=== PATIENT | female | born 1950 | race Caucasian/White ===

== ENCOUNTER 2018-09-19 07:54 | Day surgery (SDC) | payer MEDICARE, OTHER ==
[~2018-09-19 07:54] MED LIST: Lactated Ringers 1,000 ML IV SCH; Lidocaine 1% 6 ML ONE; Lidocaine 1%/Sod Bicarbonate in NS 8.4% 1 ML Syringe IDERM PRN; Propofol 200 MG/20 ML SDV ONE; Sodium Chloride 0.9% 10 ML Syringe FLUSH PRN; fentaNYL 100 MCG/2 ML SDV ONE
--- NOTE | 2018-09-19 08:01 | PCM.PREANE ---
Preanesthetic Assessment - Anesthesia/Transfusion/Family Hx Anesthesia History: Prior Anesthesia Without Reaction Family History of Anesthesia Reaction: No Transfusion History: No Prior Transfusion(s) Intubation History: Unknown - Review of Systems General: No Symptoms Pulmonary: No Symptoms (Former smoker 1-2 packs per day times 15 years quit 25 years ago/AUSTYN with CPAP) Cardiovascular: No Symptoms Gastrointestinal: No Symptoms (GERD/appetite disorder), Difficulty Swallowing Neurological: No Symptoms (essential tremor) Other: Reports: Thyroid Problems (hypothyroid), Sinus Problem (post nasal drip) , Anxiety - Physical Assessment NPO Status Date: 09/18/18 NPO Status Time: 21:30 Pulse: 74 O2 Sat by Pulse Oximetry: 95 Respiratory Rate: 18 Blood Pressure: 131/70 Temperature: 36.1 C Height: 1.65 m Weight: 83 kg ASA Class: 2 Mental Status: Alert & Oriented x3 Airway Class: Mallampati = 2 Dentition: Reports: Dentures (top), Partial (bottom) Thyro-Mental Finger Breadths: 3 Mouth Opening Finger Breadths: 3 ROM/Head Extension: Full Lungs: Clear to Auscultation, Normal Respiratory Effort Cardiovascular: Regular Rate, Regular Rhythm, No Murmurs - Allergies Allergies/Adverse Reactions: Allergies Allergy/AdvReac Type Severity Reaction Status Date / Time No Known Allergies Allergy Verified 09/19/18 08:21 - Anesthesia Plan Pre-Op Medication Ordered: Beta Bernard Beta Bernard: Propranolol Med Last Dose Date: 09/19/18 Med Last Dose Time: 07:00 - Acknowledgements Anesthesia Type Planned: MAC Pt an Appropriate Candidate for the Planned Anesthesia: Yes Alternatives and Risks of Anesthesia Discussed w Pt/Guardian: Yes Pt/Guardian Understands and Agrees with Anesthesia Plan: Yes PreAnesthesia Questionnaire HEENT History: Reports: Impaired Vision, Other (See Below) Other HEENT History: wears glasses, has upper denture, lower partial Cardiovascular History: Reports: High Cholesterol Respiratory History: Reports: Sleep Apnea, Other (See Below) Other Respiratory History: snoring Gastrointestinal History: Reports: GERD, Other (See Below) Other Gastrointestinal History: appetite disorder, dysphagia Genitourinary History: Reports: None HAT PRESSER History: Reports: None Musculoskeletal History: Reports: Other (See Below) Other Musculoskeletal History: hip pain Neurological History: Reports: Other (See Below) Other Neuro History: essential tremor Psychiatric History: Reports: Anxiety Endocrine/Metabolic History: Reports: Hypothyroidism, Osteopenia Hematologic History: Reports: None Immunologic History: Reports: None Oncologic (Cancer) History: Reports: None Dermatologic History: Reports: Other (See Below) Other Dermatologic History: neck cyst excision - Past Surgical History Head Surgeries/Procedures: Reports: None HEENT Surgical History: Reports: None Cardiovascular Surgical History: Reports: None Respiratory Surgical History: Reports: None GI Surgical History: Reports: Colonoscopy Female Surgical History: Reports: Tubal Ligation Male Surgical History: Reports: None Endocrine Surgical History: Reports: None Neurological Surgical History: Reports: None Musculoskeletal Surgical History: Reports: Other (See Below) Other Musculoskeletal Surgeries/Procedures:: carpal tunnel release, foot surgery Oncologic Surgical History: Reports: None Dermatological Surgical History: Reports: None - SUBSTANCE USE Smoking Status *Q: Former Smoker Recreational Drug Use History: No - HOME MEDS Home Medications: Home Meds Calcium Carbonate [Calcium] 600 mg PO BID 09/18/18 [History] Chromium Picolinate 1,000 mcg PO BID 09/18/18 [History] Levothyroxine 125 mcg PO DAILY 09/18/18 [History] Multivitamin [Daily Multiple Vitamin] 1 tab PO DAILY 09/18/18 [History] Multivits,Ca,Minerals/Iron/FA [Women's Daily Formula Caplet] 1 tab PO DAILY [History] Phentermine HCl 15 mg PO DAILY 09/18/18 [History] Propranolol [Inderal LA] 60 mg PO DAILY 09/18/18 [History] atorvaSTATin [Lipitor] 10 mg PO DAILY 09/18/18 [History] metFORMIN [Glucophage] 500 mg PO BEDTIME 09/18/18 [History] - CURRENT (IN HOUSE) MEDS Current Meds: Current Medications Lactated Ringer's (Ringers, Lactated) 1,000 mls @ 125 mls/hr IV ASDIRECTED ROLF Stop: 09/19/18 23:00 Lidocaine/Sodium Bicarbonate (Buffered Lidocaine 1% In Ns 8.4%) 0.25 ml IDERM ONETIME PRN PRN Reason: Prior to IV Start Stop: 09/19/18 18:00 Sodium Chloride (Saline Flush) 10 ml FLUSH ASDIRECTED PRN PRN Reason: Keep Vein Open Stop: 09/19/18 18:00 Discontinued Medications Fentanyl (Sublimaze) Confirm Administered Dose 100 mcg .ROUTE .STK-MED ONE Stop: 09/19/18 07:12 Lidocaine HCl (Xylocaine-Mpf 1%) Confirm Administered Dose 6 mls @ as directed .ROUTE .STK-MED ONE Stop: 09/19/18 07:11 Propofol (Diprivan 20 Ml) Confirm Administered Dose 200 mg .ROUTE .STK-MED ONE Stop: 09/19/18 07:12
[2018-09-19] MEDS ORDERED: Lactated Ringers 1,000 ML ONE (08:57)
--- NOTE | 2018-09-19 09:21 | PCM.OPNOTE ---
- General Post-Op/Procedure Note Date of Surgery/Procedure: 09/19/18 Operative Procedure(s): esophagogastroduodenoscopy with biopsy Findings: 1) Inflammatory changes to the GE junction 2) Biopsy obtained of the gastric antrum, GE junction, and distal/mid/proximal esophagus Pre Op Diagnosis: dysphagia Post-Op Diagnosis: Same Anesthesia Technique: MAC Primary Surgeon: Rasheed Burger Anesthesia Provider: Kelley Herrera Pathology: 1) gastric antrum 2) GE junction 3) distal esophagus 4) mid esophagus 5) proximal esophagus Fluid Replacement, Intraop: 500 (crystalloid) EBL in mLs: 0 Complications: None Condition: Good Free Text/Narrative:: Indications for surgery: The patient is a 67 yo female, with a history of chronic GERD, presenting with dysphagia. Recent esophagram demonstrated reflux. The patient was consented for esophagogastroduodenoscopy with possible biopsy. Indications, risks, and benefits were discussed. Description of procedure: After surgical consent was verified, the patient was brought to the endoscopy suite. Anesthesia inducted monitored anesthesia care. A procedural time-out was performed to verify proper patient and proper procedure. Appropriate padding and straps were placed. A bite block was placed. An endoscope was inserted through the mouth and advanced down the esophagus, into the stomach, through the pylorus, and into the 2nd portion of the duodenum. The scope was then withdrawn into the stomach. Retroflexed views of the GE junction were obtained. The scope was withdrawn through the GE junction, and the esophagus was inspected. Biopsy of the gastric antrum was performed, which appeared endoscopically normal. Biopsy of the GE junction was also performed, which showed evidence of inflammation, with erythematous mucosa. Biopsy of the different portions of the esophagus (distal, mid, and proximal) were performed, which appeared endoscopically normal. The patient tolerated the procedure well, was brought out of anesthesia, and transported to the PACU in stable condition. I was present and scrubbed for the entirety of the case. Rasheed Burger M.D., F.A.C.S. General Surgery Pager: [phone]
--- NOTE | 2018-09-19 09:23 | PCM48HPAN ---
Post Anesthesia Note - EVALUATION WITHIN 48HRS OF ANESTHETIC Vital Signs in Normal Range: Yes Patient Participated in Evaluation: Yes Respiratory Function Stable: Yes Airway Patent: Yes Cardiovascular Function Stable: Yes Hydration Status Stable: Yes Pain Control Satisfactory: Yes Nausea and Vomiting Control Satisfactory: Yes Mental Status Recovered: Yes
[2018-09-19 09:24] VITALS: BP 107/60
== END 2018-09-19 09:56 | disposition home or self-care (01) ==
LOC: JD.SDS 07:54
PROVIDERS: ATTEND Student in an Organized Health Care Education/Training Program
DX: K20.9 Esophagitis, unspecified (principal); E66.9 Obesity, unspecified; Z68.32 Body mass index [BMI] 32.0-32.9, adult; K21.9 Gastro-esophageal reflux disease without esophagitis; E03.9 Hypothyroidism, unspecified; E78.2 Mixed hyperlipidemia; G47.33 Obstructive sleep apnea (adult) (pediatric); Z99.89 Dependence on other enabling machines and devices; Z87.891 Personal history of nicotine dependence; Z79.899 Other long term (current) drug therapy; Z79.890 Hormone replacement therapy
CPT/HCPCS: 43239; 93005; J2704; J3010; J7120; J2001

== ENCOUNTER 2019-05-22 07:57 | Day surgery (SDC) | payer MEDICARE, OTHER ==
[~2019-05-22 07:57] MED LIST changes: +Lidocaine 1% 2 ML ONE; -Lidocaine 1% 6 ML ONE; -Propofol 200 MG/20 ML SDV ONE; -fentaNYL 100 MCG/2 ML SDV ONE
[2019-05-22] MEDS ORDERED: Vancomycin 1.5 GM in Sodium Chloride 0.9% 500 ML IV SCH (08:12)
--- NOTE | 2019-05-22 08:43 | PCM.PREANE ---
Preanesthetic Assessment - Anesthesia/Transfusion/Family Hx Anesthesia History: Prior Anesthesia Without Reaction Family History of Anesthesia Reaction: No Transfusion History: No Prior Transfusion(s) Intubation History: Unknown - Review of Systems General: No Symptoms Pulmonary: No Symptoms Cardiovascular: No Symptoms Gastrointestinal: No Symptoms Neurological: No Symptoms Other: Reports: None - Physical Assessment NPO Status Date: 05/21/19 NPO Status Time: 21:00 Vital Signs: Last Vital Signs Temp 36.6 C 05/22/19 08:05 Pulse 65 05/22/19 08:05 Resp 16 05/22/19 08:05 BP 124/59 L 05/22/19 08:05 Pulse Ox 96 05/22/19 08:05 Height: 1.63 m Weight: 85 kg ASA Class: 2 Mental Status: Alert & Oriented x3 Airway Class: Mallampati = 1 Dentition: Reports: Dentures (upper), Partial (lower) Thyro-Mental Finger Breadths: 3 Mouth Opening Finger Breadths: 3 Lungs: Clear to Auscultation, Normal Respiratory Effort Cardiovascular: Regular Rate, Regular Rhythm - Lab Values: Laboratory Last Values MRSA (PCR) Positive H 05/10/19 08:54 - Allergies Allergies/Adverse Reactions: Allergies Allergy/AdvReac Type Severity Reaction Status Date / Time No Known Allergies Allergy Verified 05/20/19 13:04 - Acknowledgements Anesthesia Type Planned: MAC Pt an Appropriate Candidate for the Planned Anesthesia: Yes Alternatives and Risks of Anesthesia Discussed w Pt/Guardian: Yes Pt/Guardian Understands and Agrees with Anesthesia Plan: Yes PreAnesthesia Questionnaire HEENT History: Reports: Impaired Vision Other HEENT History: wears glasses, has upper denture, lower partial Cardiovascular History: Reports: Hypertension, Other (See Below) Other Cardiovascular History: Mixed dyslipidemia Respiratory History: Reports: Sleep Apnea, Other (See Below) Other Respiratory History: Uses CPAP Gastrointestinal History: Reports: GERD, Other (See Below) Other Gastrointestinal History: Dysphagia Genitourinary History: Reports: None MANAGER LAN History: Reports: Musculoskeletal History: Reports: Other (See Below) Other Musculoskeletal History: Hip pain, left 4th finger trigger finger Neurological History: Reports: Other (See Below) Other Neuro History: Essential tremor Psychiatric History: Reports: Anxiety, Panic Attack Endocrine/Metabolic History: Reports: Hypothyroidism, Osteopenia Hematologic History: Reports: None Immunologic History: Reports: None Oncologic (Cancer) History: Reports: None Dermatologic History: Reports: Other (See Below) Other Dermatologic History: neck cyst excision - Infectious Disease History Infectious Disease History: Reports: MRSA Other Infectious Disease History: MRSA + on 05-10-19 - Past Surgical History Head Surgeries/Procedures: Reports: None Cardiovascular Surgical History: Reports: None Respiratory Surgical History: Reports: None GI Surgical History: Reports: None Female Surgical History: Reports: Tubal Ligation Endocrine Surgical History: Reports: None Neurological Surgical History: Reports: None Musculoskeletal Surgical History: Reports: Other (See Below) Other Musculoskeletal Surgeries/Procedures:: Left carpal tunnel surgery, left big toe surgery (2 screws) Dermatological Surgical History: Reports: Other (See Below) - SUBSTANCE USE Smoking Status *Q: Former Smoker Tobacco Use Within Last Twelve Months: No Second Hand Smoke Exposure: No Recreational Drug Use History: No - HOME MEDS Home Medications: Home Meds Calcium Carbonate [Calcium] 600 mg PO BID 09/18/18 [History] Levothyroxine 125 mcg PO DAILY 09/18/18 [History] Multivitamin [Daily Multiple Vitamin] 1 tab PO DAILY 09/18/18 [History] Propranolol [Inderal LA] 60 mg PO DAILY 09/18/18 [History] atorvaSTATin [Lipitor] 10 mg PO DAILY 09/18/18 [History] Cholecalciferol (Vitamin D3) [Vitamin D3] 2,000 unit PO DAILY 05/20/19 [History] Omeprazole 20 mg PO DAILY 05/20/19 [History] - CURRENT (IN HOUSE) MEDS Current Meds: Current Medications Lactated Ringer's (Ringers, Lactated) 1,000 mls @ 125 mls/hr IV ASDIRECTED ROLF Stop: 05/22/19 23:00 Vancomycin HCl 1.5 gm/ Sodium (Chloride) 500 mls @ 333 mls/hr IV ONETIME ROLF Stop: 05/22/19 12:00 Lidocaine/Sodium Bicarbonate (Buffered Lidocaine 1% In Ns 8.4%) 0.25 ml IDERM ONETIME PRN PRN Reason: Prior to IV Start Stop: 05/22/19 18:00 Sodium Chloride (Saline Flush) 10 ml FLUSH ASDIRECTED PRN PRN Reason: Keep Vein Open Stop: 05/22/19 18:00 Discontinued Medications Lidocaine HCl (Xylocaine-Mpf 1%) Confirm Administered Dose 2 mls @ as directed .ROUTE .STK-MED ONE Stop: 05/22/19 07:18 Lidocaine HCl (Xylocaine-Mpf 1%) Confirm Administered Dose 2 mls @ as directed .ROUTE .STK-MED ONE Stop: 05/22/19 07:18
[2019-05-22] MEDS ORDERED: Bupivacaine 0.25% 10 ML SDV ONE (08:45)
[2019-05-22] MEDS ORDERED: Lidocaine 1% 30 ML SDV ONE (08:45)
[2019-05-22] MEDS ORDERED: fentaNYL 100 MCG/2 ML SDV ONE (09:02)
[2019-05-22] MEDS ORDERED: Propofol 200 MG/20 ML SDV ONE (09:02)
[2019-05-22] MEDS ORDERED: Midazolam 1 MG/ML 2 ML SDV ONE (09:02)
[2019-05-22] MEDS ORDERED: Ketorolac 30 MG/ML SDV ONE (09:52)
--- NOTE | 2019-05-22 10:09 | PCM48HPAN ---
Post Anesthesia Note - EVALUATION WITHIN 48HRS OF ANESTHETIC Vital Signs in Normal Range: Yes Patient Participated in Evaluation: Yes Respiratory Function Stable: Yes Airway Patent: Yes Cardiovascular Function Stable: Yes Hydration Status Stable: Yes Pain Control Satisfactory: Yes Nausea and Vomiting Control Satisfactory: Yes Mental Status Recovered: Yes Vital Signs: Last Vital Signs Temp 36.6 C 05/22/19 08:05 Pulse 65 05/22/19 08:05 Resp 16 05/22/19 08:05 BP 124/59 L 05/22/19 08:05 Pulse Ox 96 05/22/19 08:05
[2019-05-22 10:56] VITALS: BP 104/54; PULSE 70
--- NOTE | 2019-05-27 07:22 | PCM.OPNOTE ---
- General Post-Op/Procedure Note Date of Surgery/Procedure: 05/22/19 Operative Procedure(s): left ring finger trigger finger release Pre Op Diagnosis: left ring finger stenosing tenosynovitis Post-Op Diagnosis: Same Anesthesia Technique: Local, MAC Primary Surgeon: Bill Manuel Anesthesia Provider: Ebony Wilkins Picture Enlarger: Leonora Chávez EBL in mLs: 5 Complications: None Condition: Good
--- NOTE | 2019-05-27 08:26 | OR ---
DATE OF OPERATION: 05/22/2019 SURGEON: Bill Manuel MD OPERATION PERFORMED: Left ring finger trigger finger release. PREOPERATIVE DIAGNOSIS: Left ring finger stenosing tenosynovitis. POSTOPERATIVE DIAGNOSIS: Left ring finger stenosing tenosynovitis. ANESTHESIA: Local MAC. ANESTHESIA PROVIDER: Ebony Wilkins CRNA. FAX MACHINE REPAIRER: Leonora Chávez PA-C. ESTIMATED BLOOD LOSS: 5 mL. COMPLICATIONS: None. CONDITION: Stable. DESCRIPTION OF PROCEDURE: The patient was identified in the preoperative holding area. Proper site was marked and identified by the surgeon. The patient was taken back to the operating theater where after adequate anesthesia, the patient's left upper extremity was sterilely prepped and draped in the usual sterile fashion. OR time-out was performed. The patient did not receive antibiotics as it was not indicated for soft tissue and procedure at this time. Esmarch was used as a tourniquet on the forearm to the left upper extremity. 1% lidocaine without epinephrine and 0.25% Marcaine without epinephrine was then used to anesthetize over the A1 clint of the left ring finger. A transverse incision was made. Blunt dissection was taken down to the A1 clint. Ragnell retractors were used on either side to protect the neurovascular bundles. A [place] blade was then used to resect the A1 clint both proximally and distally taking care to protect the neurovascular bundle. It was found to be adequate release both proximally and distally. The tendon was then identified and there was no signs of tendinous adhesions. At this time, adequate saline was irrigated through the wound. A 4-0 nylon suture was used for closure of skin. The patient tolerated the procedure well and was sent to PACU in stable condition. MMODAL /[id number]
== END 2019-05-22 11:03 | disposition home or self-care (01) ==
LOC: JD.SDS 07:57
PROVIDERS: ATTEND Orthopaedic Surgery
DX: M65.342 Trigger finger, left ring finger (principal); I10 Essential (primary) hypertension; E03.9 Hypothyroidism, unspecified; E66.3 Overweight; K21.9 Gastro-esophageal reflux disease without esophagitis; G47.33 Obstructive sleep apnea (adult) (pediatric); Z68.30 Body mass index [BMI] 30.0-30.9, adult; Z99.89 Dependence on other enabling machines and devices; Z87.891 Personal history of nicotine dependence; Z79.899 Other long term (current) drug therapy
CPT/HCPCS: 26055; 87641; J1885; J2001; J2250; J2704; J3010; J3370; J3490; J7040; J7120; 01810

== ENCOUNTER 2020-02-25 09:02 | Day surgery (SDC) | payer MEDICARE, OTHER ==
[~2020-02-25 09:02] MED LIST changes: -Lidocaine 1% 2 ML ONE; +Lidocaine 1% 4 ML ONE; +Midazolam 1 MG/ML 2 ML SDV ONE; +Propofol 200 MG/20 ML SDV ONE; +fentaNYL 100 MCG/2 ML SDV ONE
--- NOTE | 2020-02-25 09:32 | PCM.PREANE ---
Preanesthetic Assessment - Procedure Proposed Procedure: screning colon - Anesthesia/Transfusion/Family Hx Anesthesia History: Prior Anesthesia Without Reaction Family History of Anesthesia Reaction: No Transfusion History: No Prior Transfusion(s) Intubation History: Unknown - Review of Systems General: No Symptoms Pulmonary: No Symptoms Cardiovascular: No Symptoms Gastrointestinal: No Symptoms Neurological: No Symptoms Other: Reports: Thyroid Problems, Sinus Problem (drainage) - Physical Assessment NPO Status Date: 02/25/20 NPO Status Time: 04:00 Vital Signs: 123/61 63 96% 98.3 Height: 5 ft 5 in Weight: 87.997 kg ASA Class: 2 Mental Status: Alert & Oriented x3 Airway Class: Mallampati = 1 Dentition: Reports: Dentures (upper), Partial (lower) Thyro-Mental Finger Breadths: 3 Mouth Opening Finger Breadths: 3 ROM/Head Extension: Full Lungs: Clear to Auscultation, Normal Respiratory Effort Cardiovascular: Regular Rate, Regular Rhythm - Allergies Allergies/Adverse Reactions: Allergies Allergy/AdvReac Type Severity Reaction Status Date / Time No Known Allergies Allergy Verified 02/24/20 16:19 - Blood Blood Available: No - Anesthesia Plan Beta Bernard: Propranolol Med Last Dose Date: 02/25/20 Med Last Dose Time: 06:00 - Acknowledgements Anesthesia Type Planned: MAC Pt an Appropriate Candidate for the Planned Anesthesia: Yes Alternatives and Risks of Anesthesia Discussed w Pt/Guardian: Yes Pt/Guardian Understands and Agrees with Anesthesia Plan: Yes PreAnesthesia Questionnaire HEENT History: Reports: Impaired Vision, Other (See Below) Other HEENT History: wears glasses, has upper denture, lower partial Cardiovascular History: Reports: High Cholesterol Other Cardiovascular History: Mixed dyslipidemia Respiratory History: Reports: Sleep Apnea, Other (See Below) Other Respiratory History: snoring Gastrointestinal History: Reports: GERD, Other (See Below) Other Gastrointestinal History: appetite disorder, dysphagia Genitourinary History: Reports: None ENGINEERING PROFESSOR History: Reports: None Musculoskeletal History: Reports: Other (See Below) Other Musculoskeletal History: hip pain Neurological History: Reports: Other (See Below) Other Neuro History: essential tremor Psychiatric History: Reports: Anxiety Endocrine/Metabolic History: Reports: Hypothyroidism, Osteopenia Hematologic History: Reports: None Immunologic History: Reports: None Oncologic (Cancer) History: Reports: None Dermatologic History: Reports: Other (See Below) Other Dermatologic History: neck cyst excision - Infectious Disease History Infectious Disease History: Reports: MRSA Other Infectious Disease History: MRSA + on 05-10-19 - Past Surgical History Head Surgeries/Procedures: Reports: None HEENT Surgical History: Reports: None Cardiovascular Surgical History: Reports: None Respiratory Surgical History: Reports: None GI Surgical History: Reports: Colonoscopy Female Surgical History: Reports: Tubal Ligation Male Surgical History: Reports: None Endocrine Surgical History: Reports: None Neurological Surgical History: Reports: None Musculoskeletal Surgical History: Reports: Other (See Below) Other Musculoskeletal Surgeries/Procedures:: carpal tunnel release, foot surgery Oncologic Surgical History: Reports: None Dermatological Surgical History: Reports: None - SUBSTANCE USE Smoking Status *Q: Former Smoker Tobacco Use Within Last Twelve Months: No Second Hand Smoke Exposure: No Days Per Week of Alcohol Use: 1 Recreational Drug Use History: No - HOME MEDS Home Medications: Home Meds Calcium Carbonate [Calcium] 600 mg PO BID 09/18/18 [History] Levothyroxine 125 mcg PO DAILY 09/18/18 [History] Multivitamin [Daily Multiple Vitamin] 1 tab PO DAILY 09/18/18 [History] Propranolol [Inderal LA] 60 mg PO DAILY 09/18/18 [History] atorvaSTATin [Lipitor] 10 mg PO DAILY 09/18/18 [History] Cholecalciferol (Vitamin D3) [Vitamin D3] 2,000 unit PO DAILY 05/20/19 [History] Omeprazole 20 mg PO DAILY 05/20/19 [History] [place]-3/DHA/Epa/Fish Oil [Fish Oil 1,000 mg Softgel] 1 cap PO DAILY 02/25/20 [History] - CURRENT (IN HOUSE) MEDS Current Meds: Current Medications Lactated Ringer's (Ringers, Lactated) 1,000 mls @ 125 mls/hr IV ASDIRECTED ROLF Stop: 02/25/20 23:00 Lidocaine/Sodium Bicarbonate (Buffered Lidocaine 1% In Ns 8.4%) 0.25 ml IDERM ONETIME PRN PRN Reason: Prior to IV Start Stop: 02/25/20 18:00 Sodium Chloride (Saline Flush) 10 ml FLUSH ASDIRECTED PRN PRN Reason: Keep Vein Open Stop: 02/25/20 18:00 Discontinued Medications Fentanyl (Sublimaze) Confirm Administered Dose 100 mcg .ROUTE .STK-MED ONE Stop: 02/25/20 08:23 Lidocaine HCl (Xylocaine-Mpf 1%) Confirm Administered Dose 4 mls @ as directed .ROUTE .STK-MED ONE Stop: 02/25/20 08:22 Midazolam HCl (Versed 1 Mg/Ml) Confirm Administered Dose 2 mg .ROUTE .STK-MED ONE Stop: 02/25/20 08:23 Propofol (Diprivan 20 Ml) Confirm Administered Dose 200 mg .ROUTE .STK-MED ONE Stop: 02/25/20 08:23
[2020-02-25] MEDS ORDERED: Propofol 200 MG/20 ML SDV ONE (10:10)
--- NOTE | 2020-02-25 10:41 | PCM.PRNOTE ---
- Free Text/Narrative Note: Date: 02/25/2020 Procedure: screening colonoscopy Endoscopist: Den Romano MD Findings: Ileocecal valve visualized. Prep was very good. A single small sessile polyp in the ascending colon was biopsied with forceps. Detailed Report: The patient was taken to the endoscopy suite and placed in left lateral decubi tus position. Time out was performed and monitored anesthesia care was initiated. Inspection of the anus revealed external hemorrhoidal skin tags. Digital rectal exam was unremarkable. The lubricated colonoscope was then inserted and advanced all the way to the cecum. The ileocecal valve was visualized. The prep was noted to be very good. On slow withdrawal of the scope, mucosal surfaces were carefully inspected. A subcentimeter sessile polyp identified in the ascending colon just distal to the ileocecal valve was identified, and biopsied with forceps. Remaining tissue was fulgurated with mo nopolar energy. Near the splenic flexure, a well-circumscribed spherical submucosal lesion was noted. No biopsy was performed. Mild diverticular disease was noted in the sigmoid colon. No significant hemorrhoidal disease or other pathology noted in the rectum on retroflexion. Air was suctioned prior to complete withdrawal of the scope. The patient tolerated the procedure well. Den Romano MD General Surgery
--- NOTE | 2020-02-25 10:45 | PCM48HPAN ---
Post Anesthesia Note - EVALUATION WITHIN 48HRS OF ANESTHETIC Vital Signs in Normal Range: Yes Patient Participated in Evaluation: Yes Respiratory Function Stable: Yes Airway Patent: Yes Cardiovascular Function Stable: Yes Hydration Status Stable: Yes Pain Control Satisfactory: Yes Nausea and Vomiting Control Satisfactory: Yes Mental Status Recovered: Yes Vital Signs: Last Vital Signs Temp 98.3 F 02/25/20 09:05 Pulse 63 02/25/20 09:05 Resp 16 02/25/20 09:05 BP 123/61 02/25/20 09:05 Pulse Ox 96 02/25/20 09:05 1040 131/65 66 16 97.1 90%
[2020-02-25 11:28] VITALS: BP 130/61; PULSE 65
== END 2020-02-25 11:37 | disposition home or self-care (01) ==
LOC: JD.SDS 09:02
PROVIDERS: ATTEND Surgery
DX: Z12.11 Encounter for screening for malignant neoplasm of colon (principal); D12.2 Benign neoplasm of ascending colon; K21.9 Gastro-esophageal reflux disease without esophagitis; K57.30 Diverticulosis of large intestine without perforation or abscess without bleeding; E03.9 Hypothyroidism, unspecified; E78.2 Mixed hyperlipidemia; G47.33 Obstructive sleep apnea (adult) (pediatric); Z99.89 Dependence on other enabling machines and devices; Z79.899 Other long term (current) drug therapy; Z79.890 Hormone replacement therapy; Z87.891 Personal history of nicotine dependence
CPT/HCPCS: 45380; J2001; J2250; J2704; J3010; J7120; 00812

== ENCOUNTER 2023-08-10 08:00 | Day surgery (SDC) | payer MEDICARE, OTHER ==
[~2023-08-10 08:00] MED LIST changes: -Lidocaine 1% 4 ML ONE; -Lidocaine 1%/Sod Bicarbonate in NS 8.4% 1 ML Syringe IDERM PRN; -Midazolam 1 MG/ML 2 ML SDV ONE; -Propofol 200 MG/20 ML SDV ONE; +Sodium Chloride 0.9% 10 ML Syringe FLUSH SCH; -fentaNYL 100 MCG/2 ML SDV ONE
[2023-08-10] MEDS ORDERED: Propofol 200 MG/20 ML SDV ONE ×2 (08:22)
[2023-08-10] MEDS ORDERED: Lidocaine 1% 2 ML ONE (08:23)
[2023-08-10 11:00] VITALS: BP 109/60; PULSE 58
== END 2023-08-10 10:50 | disposition home or self-care (01) ==
LOC: JD.SDS 08:00
PROVIDERS: ATTEND Specialist
DX: Z12.11 Encounter for screening for malignant neoplasm of colon (principal); I10 Essential (primary) hypertension; E78.2 Mixed hyperlipidemia; K21.9 Gastro-esophageal reflux disease without esophagitis; G47.33 Obstructive sleep apnea (adult) (pediatric); E03.8 Other specified hypothyroidism; Z86.010 Personal history of colon polyps; Z87.891 Personal history of nicotine dependence; Z79.890 Hormone replacement therapy; Z79.899 Other long term (current) drug therapy
CPT/HCPCS: 00812; 99100; J2704; J3490; J7120

== ENCOUNTER 2024-01-31 06:00 | Day surgery (SDC) | payer MEDICARE ==
[2024-01-31] MEDS: Lactated Ringers 1,000 ML IV SCH (06:15)
[2024-01-31] MEDS ORDERED: Lidocaine 1% 10 ML MDV ONE (06:18)
[2024-01-31] MEDS ORDERED: Bupivacaine 0.25% 10 ML SDV ONE (06:19)
[2024-01-31] MEDS ORDERED: Propofol 200 MG/20 ML SDV ONE (06:28)
[2024-01-31] MEDS ORDERED: HYDROmorphone 0.5 MG/0.5 ML Syringe IVPUSH PRN (06:34)
[2024-01-31] MEDS ORDERED: fentaNYL 100 MCG/2 ML SDV IVPUSH PRN (06:34)
[2024-01-31] MEDS ORDERED: Ondansetron 4 MG/2 ML SDV IVPUSH PRN (06:34)
[2024-01-31] MEDS ORDERED: ceFAZolin 2 GM Vial ONE (06:59)
[2024-01-31 09:00] VITALS: BP 99/54; PULSE 67
== END 2024-01-31 08:15 | disposition home or self-care (01) ==
LOC: JD.SDS 06:00
PROVIDERS: ATTEND Orthopaedic Surgery
DX: G56.01 Carpal tunnel syndrome, right upper limb (principal); E03.9 Hypothyroidism, unspecified; L98.9 Disorder of the skin and subcutaneous tissue, unspecified; F41.9 Anxiety disorder, unspecified; K21.9 Gastro-esophageal reflux disease without esophagitis; I10 Essential (primary) hypertension; E78.00 Pure hypercholesterolemia, unspecified; G47.33 Obstructive sleep apnea (adult) (pediatric); Z79.899 Other long term (current) drug therapy; Z79.890 Hormone replacement therapy; Z87.891 Personal history of nicotine dependence
CPT/HCPCS: 64721; J0665; J0690; J2704; J7120; 01810; J3490

== ENCOUNTER 2024-03-21 04:27 | Observation (INO) | payer MEDICARE, OTHER ==
[2024-03-21] MEDS: HYDROmorphone 0.5 MG/0.5 ML Syringe IVPUSH ONE (04:50)
[2024-03-21] MEDS: Ondansetron 4 MG/2 ML SDV IVPUSH ONE (04:53)
[2024-03-21] MEDS: Sodium Chloride 0.9% 1,000 ML IV SCH (04:58)
[2024-03-21] MEDS: Pantoprazole 40 MG Vial IVPUSH ONE (05:01)
[2024-03-21] MEDS: Sodium Chloride 0.9% 10 ML Syringe FLUSH PRN (05:01)
[2024-03-21 05:02] LABS: BASOPHILS ABSOLUTE AUTO 0.1 K/mm3 (0.0-0.2); BASOPHILS PERCENT AUTO 0.5 % (0.0-1.0); EOSINOPHILS ABSOLUTE AUTO 0.1 K/mm3 (0.0-0.4); EOSINOPHILS PERCENT AUTO 0.4 % (0.0-6.0); HEMATOCRIT 42.6 % (37.0-47.0); HEMOGLOBIN 14.6 gm/dl (12.0-16.0); IMMATURE GRAN ABSOLUTE AUTO 0.08 K/mm3 (0.00-0.05); IMMATURE GRAN PERCENT AUTO 0.5 % (0.0-0.4); LYMPHOCYTES PERCENT AUTO 13.5 % (24.0-44.0); MEAN CORPUSCULAR HEMOGLOBIN 28.7 pg (28.0-32.0); MEAN CORPUSCULAR HGB CONC 34.3 g/dl (32.0-36.0); MEAN CORPUSCULAR VOLUME 83.9 fl (83.0-99.0); MEAN PLATELET VOLUME 9.7 fl (9.4-12.3); NEUTROPHILS ABSOLUTE AUTO 11.4 K/mm3 (1.8-7.7); NEUTROPHILS PERCENT AUTO 78.1 % (41.0-71.0); PLATELET COUNT,PLT 316 K/mm3 (150-400); RED BLOOD CELL COUNT 5.08 M/mm3 (4.10-5.30); WHITE BLOOD CELL COUNT,WBC 14.55 K/mm3 (3.9-11.3)
[2024-03-21 05:27] LABS: A/G RATIO 1.1 (1-2); ALANINE AMINOTRANSFERASE,ALT 27 U/L (14-59); ALKALINE PHOSPHATASE 79 U/L (46-116); ANION GAP 17.8 (5-15); ASPARTATE AMNIOTRANSFERASE,AST 18 U/L (15-37); BILIRUBIN TOTAL 1.4 mg/dL (0.2-1.0); BLOOD UREA NITROGEN,BUN 17 mg/dL (7-18); BUN/CREATININE RATIO 21.3 (14-18); CALCIUM 9.1 mg/dL (8.5-10.1); CARBON DIOXIDE,CO2 20 mEq/L (21-32); CHLORIDE,CL 104 mEq/L (98-107); CREATININE 0.8 mg/dL (0.55-1.02); EST CRCL DRUG DOSING (CG) 56.36 mL/min; ESTIMATED GFR 78 mL/min (>60); GLUCOSE RANDOM 136 mg/dL (70-99); LIPASE 26 U/L (16-77); POTASSIUM,K 3.8 mEq/L (3.5-5.1); PROTEIN TOTAL,TP 7.5 g/dl (6.4-8.2); SODIUM,NA 138 mEq/L (136-145)
[2024-03-21 05:40] LABS: TROPONIN I HIGH SENSITIVITY < 4 pg/mL (<=51)
[2024-03-21] MEDS ORDERED: Ondansetron 4 MG Tab.DIS PO PRN (07:05)
[2024-03-21] MEDS ORDERED: PROPRANOLOL HCL 80 MG PO SCH (09:00)
[2024-03-21] MEDS: Morphine 2 MG/ML SYRINGE IVPUSH PRN (09:19)
[2024-03-21] MEDS ORDERED: Rocuronium 50 MG/5 ML Vial ONE (10:25)
[2024-03-21] MEDS ORDERED: Sugammadex Sodium 200 MG/2 ML VIAL IV ONE (10:25)
[2024-03-21] MEDS ORDERED: Ondansetron 4 MG/2 ML SDV ONE (10:25)
[2024-03-21] MEDS ORDERED: ceFAZolin 2 GM Vial ONE (10:25)
[2024-03-21] MEDS ORDERED: Dexamethasone 4 MG/ML 5 ML MDV ONE (10:25)
[2024-03-21] MEDS ORDERED: Lidocaine 1% 5 ML VIAL ONE (10:25)
[2024-03-21] MEDS ORDERED: HYDROmorphone 0.5 MG/0.5 ML Syringe ONE (10:26)
[2024-03-21] MEDS ORDERED: fentaNYL 100 MCG/2 ML SDV ONE ×2 (10:26→11:42)
[2024-03-21] MEDS ORDERED: Ketamine 200 MG/20 ML MDV ONE (10:26)
[2024-03-21] MEDS ORDERED: Propofol 200 MG/20 ML SDV ONE (10:26)
[2024-03-21] MEDS: Lactated Ringers 1,000 ML IV SCH (10:39)
[2024-03-21] MEDS: Bupivacaine 0.5%/EPINEPHrine 1:200,000 50 ML MDV ONE (11:28)
[2024-03-21] MEDS ORDERED: Labetalol 100 MG/20 ML MDV ONE (11:40)
[2024-03-21] MEDS ORDERED: Lactated Ringers 1,000 ML IV ONE (11:45)
[2024-03-21] MEDS ORDERED: fentaNYL 100 MCG/2 ML SDV IVPUSH PRN (12:01)
[2024-03-21] MEDS ORDERED: Naloxone 0.4 MG/ML SDV IVPUSH PRN (12:01)
[2024-03-21] MEDS ORDERED: Ondansetron 4 MG/2 ML SDV IVPUSH PRN (12:01)
[2024-03-21] MEDS: HYDROmorphone 0.5 MG/0.5 ML Syringe IVPUSH PRN (12:38)
[2024-03-21 15:40] VITALS: BP 97/80; PULSE 65
== END 2024-03-21 16:53 | disposition home or self-care (01) ==
LOC: JD.ED 04:27 → JD.MS 07:05 → JD.SDS 07:27
PROVIDERS: ADMIT Surgery; ATTEND Surgery
DX: K80.12 Calculus of gallbladder with acute and chronic cholecystitis without obstruction (principal); I10 Essential (primary) hypertension; E78.2 Mixed hyperlipidemia; E03.9 Hypothyroidism, unspecified; K21.9 Gastro-esophageal reflux disease without esophagitis; Z87.891 Personal history of nicotine dependence; Z79.890 Hormone replacement therapy; Z79.899 Other long term (current) drug therapy
CPT/HCPCS: 36415; 47562; 71045; 76705; 80053; 82248; 83690; 84484; 85025; 94761; 96361; 96374; 96375; 99285; G0378; J0690; J1100; J1170; J1921; J2270; J2405; J2470; J2704; J3010; J3490; J7030; J7120; 00790; 88304; 99100

== ENCOUNTER 2024-12-12 09:34 | Day surgery (SDC) | payer MEDICARE, OTHER ==
[~2024-12-12 09:34] MED LIST changes: -Lactated Ringers 1,000 ML IV SCH
[2024-12-12] MEDS: Lactated Ringers 1,000 ML IV SCH (10:00)
[2024-12-12] MEDS ORDERED: Propofol 200 MG/20 ML SDV ONE (11:03)
[2024-12-12] MEDS ORDERED: Lidocaine 2% 5 ML SDV ONE (11:07)
[2024-12-12 13:01] VITALS: BP 115/71; PULSE 71
== END 2024-12-12 12:12 | disposition home or self-care (01) ==
LOC: JD.SDS 09:34
PROVIDERS: ATTEND Surgery
DX: K21.9 Gastro-esophageal reflux disease without esophagitis (principal); K29.50 Unspecified chronic gastritis without bleeding; F41.9 Anxiety disorder, unspecified; I10 Essential (primary) hypertension; E78.00 Pure hypercholesterolemia, unspecified; E03.9 Hypothyroidism, unspecified; G47.33 Obstructive sleep apnea (adult) (pediatric); E78.2 Mixed hyperlipidemia; Z87.891 Personal history of nicotine dependence; Z79.890 Hormone replacement therapy; Z79.899 Other long term (current) drug therapy
CPT/HCPCS: 00731; 88305; 99100; J2003; J2704; J7120